=== PATIENT | male | born 1955 | race Caucasian/White ===

== ENCOUNTER → 2020-01-02 | Outpatient (CLI) | payer MEDICARE, BC ==
--- NOTE | 2020-01-02 09:53 | KCIC ---
MR of the left knee HISTORY: Left knee pain, chronic or years. 3 prior surgeries, most recent over 5 years ago. TECHNIQUE: Routine multiplanar sequences are obtained. COMPARISON: None are available. FINDINGS: Medial meniscus is small and blunted and distorted. There is also abnormal T2 signal within the meniscus which violates the surface. Although to some degree these findings could be postoperative, tearing is still suspected. Severe distortion and abnormal signal at the lateral meniscus, particularly the posterior horn, compatible with a tear, even if there was prior lateral meniscal surgery. Anterior and posterior cruciate ligaments are intact. Mild intercondylar notch osteophytes are present. Medial ligament is intact. Iliotibial band unremarkable. Fibular collateral ligament appears intact. Popliteus tendon intact. Extensor mechanism is intact. Moderate joint effusion. Small Ta's cyst. Moderate to severe chondromalacia involving the medial compartment. Lateral compartment chondromalacia, severe full-thickness at the posterior aspect of the joint. Patellofemoral cartilage is intact. No evidence of acute fracture. No aggressive bone destruction. Mild anterior subcutaneous edema. Scarring within the infrapatellar fat compatible with prior surgical intervention. IMPRESSION: 1. Findings compatible with medial and lateral meniscal tears. 2. DJD, greatest at the posterior aspect of the lateral joint compartment. Electronically signed by: Jemal Ríos MD (01/02/2020 9:50 AM) [id number]
== END ==
LOC: KCIC MRI 08:23
PROVIDERS: ATTEND Orthopaedic Surgery
DX: S83.282A Other tear of lateral meniscus, current injury, left knee, initial encounter (principal); S83.242A Other tear of medial meniscus, current injury, left knee, initial encounter; M17.12 Unilateral primary osteoarthritis, left knee; M25.462 Effusion, left knee; M94.262 Chondromalacia, left knee; M71.22 Synovial cyst of popliteal space [Baker], left knee; X58.XXXA Exposure to other specified factors, initial encounter; Y93.89 Activity, other specified; Y92.89 Other specified places as the place of occurrence of the external cause; Y99.8 Other external cause status
CPT/HCPCS: 73721

== ENCOUNTER → 2020-02-05 | Outpatient (CLI) | payer MEDICARE, BC ==
[~2020-02-05] MED LIST: ASPI325T11 PO; HYDR-2761 PO; LANS30CA PO; MESA250C PO; PROM25TA10 PO; SIMV40TA18 PO
== END | disposition home or self-care (01) ==
LOC: LAB 12:59
PROVIDERS: ATTEND Orthopaedic Surgery
DX: Z01.818 Encounter for other preprocedural examination (principal); Z11.59 Encounter for screening for other viral diseases
CPT/HCPCS: U0003-CS

== ENCOUNTER 2020-02-07 07:14 | Day surgery (SDC) | payer MEDICARE, BC ==
[~2020-02-07] VITALS: Ht 170.2 cm; Wt 87.5 kg
[~2020-02-07 07:14] MED LIST changes: -ASPI325T11 PO; -HYDR-2761 PO; +HYDROmorphone 2 MG/ML VIAL IV PRN; +IV RINGERS,LACTATED 1000ML 1,000 ML IV SCH; +MORPHINE SULFATE 2 MG/ML VIAL. IV PRN; +ONDANSETRON PF 4 MG/2 ML VIAL. IV PRN; +PROCHLORPERAZINE 10 MG/2 ML VIAL. IV PRN; -PROM25TA10 PO; +fentaNYL PF VIAL 100 MCG/2 ML VIAL IV PRN
[2020-02-07] MEDS ORDERED: PROPOFOL 10 MG/ML (20ML) VIAL. IV ONE (08:19)
[2020-02-07] MEDS ORDERED: ONDANSETRON PF 4 MG/2 ML VIAL. ONE (08:19)
[2020-02-07] MEDS ORDERED: fentaNYL PF VIAL 100 MCG/2 ML VIAL ONE (08:19)
[2020-02-07] MEDS ORDERED: LIDOCAINE 2% PF 5 ML VIAL. ONE (08:19)
[2020-02-07] MEDS ORDERED: DEXAMETHASONE SOD PHOS 4 MG/ML VIAL ONE (08:19)
[2020-02-07] MEDS ORDERED: ceFAZolin 2GM PREMIX 2 GM/50 ML BAG IV ONE (09:00)
[2020-02-07] MEDS ORDERED: EPINEPHrine VIAL 30 MG/30 ML VIAL ONE (09:34)
[2020-02-07] MEDS ORDERED: BUPIVACAINE MPF 0.25% 30 ML VIAL. ONE ×4 (09:35→10:13)
[2020-02-07] MEDS ORDERED: ePHEDrine PF IN SALINE 50 MG/10 ML SYRINGE. IV ONE (10:48)
[2020-02-07] MEDS ORDERED: SEVOFLURANE 61 TO 120 MINUTES. IH ONE (10:54)
[2020-02-07] MEDS ORDERED: BUPIVACAINE-EPI 0.25%-1:200000 MPF 30 ML VIAL. ONE (10:58)
[2020-02-07] MEDS ORDERED: GLYCOPYRROLATE 1 MG/5 ML VIAL. ONE (11:13)
--- NOTE | 2020-02-07 11:44 | PDOC4 ---
Operative Note Operative Note Date of Procedure: February 07, 2020 Preoperative Diagnosis: left knee medial and lateral meniscus tears Postoperative Diagnosis: * complex tear of medial meniscus, current injury, left knee, initial encounter S83.232A * complex tear of lateral meniscus, current injury, left knee, initial encounter S83.272A Procedures Performed: * left knee arthroscopy, surgical, with meniscectomy, medial AND lateral, including meniscal shaving, including debridement/shaving of articular cartilage (chondroplasty) CPT 57887 Surgeon: Janis Kolb MD Neurological Surgery Teacher: SA Chuck Zimmerman Anesthesia: General Estimated Blood Loss: 10 mL Specimens: none Drains: none Complications: none Tourniquet time: 27 minutes Indications for Procedure: The patient is a 64-year-old with left knee pain, unrelieved with nonoperative treatment. Exam and MRI are consistent with a meniscus tear. We talked about the risks and benefits of proceeding with an arthroscopic procedure. We talked about potential risks of ongoing pain, progressive arthritis, bleeding, infection, blood clots, or other potential surgical or anesthetic complications. All of the patient's questions about surgery were answered and they desired to proceed. Written consent was obtained. Description of Operation: The patient was identified in the preoperative holding area. The correct left knee was marked by me. The patient was taken to the operating room, where a g eneral anesthetic was used. Preoperative antibiotics were given intravenously. A time-out procedure was performed. A tourniquet was placed on the upper thigh. Local anesthetic 20 mL of 0.25% bupivacaine was injected using sterile technique into the knee joint. The limb was prepared circumferentially with ChloraPrep solution and sterile waterproof arthroscopy drapes were applied. The limb was exsanguinated with an Esmarch bandage and the tourniquet was inflated to 300 mm Hg. Lateral and medial arthroscopy portals were established. The medial meniscus showed a complex unrepairable tear with unstable flaps. A meniscectomy was perf ormed with basket forceps and the motorized shaver back to a smooth stable base, and the resection tapered into the middle one-third of the meniscus.The medial tibiofemoral joint showed chondromalacia Outerbridge grade III, and a shaving chondroplasty was performed removing unstable fragments of cartilage with the shaver.The intercondylar notch was free of loose bodies, and the ACL was intact. The lateral tibiofemoral joint showed a complex unrepairable meniscus tear, and a meniscectomy was performed with basket forceps and the motorized shaver back to a smooth stable base.The lateral articular surfaces showed chondromalacia Outerbridge grade III and IV, and a shaving chondroplasty was performed removing unstable fragments of cartilage with the motorized shaver. The patellofemoral joint showed chondromalacia Outerbridge grade III, and a shaving chondroplasty was performed removing unstable fragments of cartilage with the shaver. The suprapatellar pouch, medial and lateral gutters were free of loose bodies. Copious irrigation was used to drain all meniscal and chondral fragments, and the knee was drained of fluid. The portals were closed with Steri-Strips. Additional local anesthetic, 30 mL of 0.25% bupivacaine with epinephrine was injected. A bulky sterile dressing was applied and the tourniquet was released. Needle and sponge counts were correct and there were no apparent complications. JANIS KOLB MD Feb 07, 2020 11:44
[2020-02-07 12:15] VITALS: BP 135/79
[2020-02-07] MEDS ORDERED: oxyCODONE/APAP 7.5/325 1 TAB TABLET PO ONE (12:15)
[2020-02-07] MEDS ORDERED: HYDR-2761 PO (12:33)
[2020-02-07] MEDS ORDERED: PROM25TA10 PO (12:34)
[2020-02-07] MEDS ORDERED: ASPI325T11 PO (12:35)
== END 2020-02-07 13:15 | disposition home or self-care (01) ==
LOC: SURG 07:14
PROVIDERS: ATTEND Orthopaedic Surgery
DX: S83.232A Complex tear of medial meniscus, current injury, left knee, initial encounter (principal); S83.272A Complex tear of lateral meniscus, current injury, left knee, initial encounter; M94.262 Chondromalacia, left knee; M19.90 Unspecified osteoarthritis, unspecified site; X58.XXXA Exposure to other specified factors, initial encounter; Y93.89 Activity, other specified; Y92.89 Other specified places as the place of occurrence of the external cause; Y99.8 Other external cause status; Z88.8 Allergy status to other drugs, medicaments and biological substances; Z79.899 Other long term (current) drug therapy
CPT/HCPCS: 29880; A7015; J0171; J0690; J1100; J2405; J2704; J3010; J3490

== ENCOUNTER → 2020-12-10 | Outpatient (CLI) | payer MEDICARE, BC ==
[~2020-12-10] MED LIST changes: +ASPI325T11 PO; +HYDR-2761 PO; -HYDROmorphone 2 MG/ML VIAL IV PRN; -IV RINGERS,LACTATED 1000ML 1,000 ML IV SCH; -MORPHINE SULFATE 2 MG/ML VIAL. IV PRN; -ONDANSETRON PF 4 MG/2 ML VIAL. IV PRN; -PROCHLORPERAZINE 10 MG/2 ML VIAL. IV PRN; +PROM25TA10 PO; -fentaNYL PF VIAL 100 MCG/2 ML VIAL IV PRN
== END ==
LOC: LAB 10:16
PROVIDERS: ATTEND Orthopaedic Surgery
DX: Z01.812 Encounter for preprocedural laboratory examination (principal); G56.03 Carpal tunnel syndrome, bilateral upper limbs; Z20.822 Contact with and (suspected) exposure to COVID-19
CPT/HCPCS: U0003; U0005

== ENCOUNTER 2020-12-16 11:53 | Day surgery (SDC) | payer MEDICARE, BC ==
[~2020-12-16] VITALS: Ht 170.2 cm; Wt 87.0 kg
[~2020-12-16 11:53] MED LIST changes: +BUPIVACAINE-EPI 0.25% 30 ML VIAL KIT. ONE; +HYDROmorphone 2 MG/ML VIAL IVP PRN; +IV RINGERS,LACTATED 1000ML 1,000 ML IV SCH; +MORPHINE SULFATE 2 MG/ML VIAL. IVP PRN; +PROCHLORPERAZINE 10 MG/2 ML VIAL. IVP PRN; +fentaNYL PF VIAL 100 MCG/2 ML VIAL IVP PRN
[2020-12-16 12:20] VITALS: BP 163/77
[2020-12-16] MEDS ORDERED: PROPOFOL 10 MG/ML (20ML) VIAL. IV ONE ×2 (12:44→13:50)
[2020-12-16] MEDS ORDERED: LIDOCAINE 2% PF 5 ML VIAL. ONE (12:44)
[2020-12-16] MEDS ORDERED: KETOROLAC 30 MG/ML VIAL. ONE (12:45)
[2020-12-16] MEDS ORDERED: SEVOFLURANE 31 TO 60 MINUTES. IH ONE (12:45)
--- NOTE | 2020-12-16 13:02 | PDOC1 ---
History and Physical Date of Admission Date of Admission DATE: 12/16/20 TIME: 12:56 Identification/Chief Complaint Chief Complaint right carpal tunnel syndrome Source Source: Chart review, Patient History of Present Illness History of Present Illness 65-year-old man with hand pain and numbness, mostly in the right hand, and carpal tunnel syndrome by EMG. He tried nonoperative treatment with NSAIDs. He is here today for elective carpal tunnel release. Past Medical History Past Medical History Hearing loss, Tinnitus, Hyperlipidemia, GERD (gastroesophageal reflux disease), Back pain, Erectile dysfunction, Myalgia, Crohn's disease. Past Surgical History Past Surgical History left knee surgery (Multiple scopes) , partial bowel resection (Crohn's Dz) , right knee surgery (Multiple scopes) Family History Family History: Cancer Social History Smoke: No ALCOHOL: occassional Current Medications Current Medications Current Medications Fentanyl Citrate (Fentanyl 2ml Vial) 25 mcg PRN Q5MIN PRN IVP MILD PAIN 1-3; Start 12/13/20 at 06:00; Stop 12/13/20 at 20:00; Status DC Fentanyl Citrate (Fentanyl 2ml Vial) 50 mcg PRN Q5MIN PRN IVP MODERATE PAIN 4- 6; Start 12/13/20 at 06:00; Stop 12/13/20 at 20:00; Status DC Morphine Sulfate (Morphine Sulfate) 1 mg PRN Q10MIN PRN IVP SEVERE PAIN 7-10; Start 12/13/20 at 06:00; Stop 12/13/20 at 20:00; Status DC Ringer's Solution 1,000 ml @ 30 mls/hr Q24H IV ; Start 12/13/20 at 06:00; Stop 12/13/20 at 17:59; Status DC Hydromorphone HCl (Dilaudid) 0.5 mg PRN Q10MIN PRN IVP SEVERE PAIN 7-10, 2nd CHOICE; Start 12/13/20 at 06:00; Stop 12/13/20 at 20:00; Status DC Prochlorperazine Edisylate (Compazine) 5 mg PACU PRN PRN IVP NAUSEA, MRX1; Start 12/13/20 at 06:00; Stop 12/13/20 at 20:00; Status DC Fentanyl Citrate (Fentanyl 2ml Vial) 25 mcg PRN Q5MIN PRN IVP MILD PAIN 1-3; Start 12/16/20 at 06:00; Stop 12/17/20 at 05:59 Fentanyl Citrate (Fentanyl 2ml Vial) 50 mcg PRN Q5MIN PRN IVP MODERATE PAIN 4- 6; Start 12/16/20 at 06:00; Stop 12/17/20 at 05:59 Morphine Sulfate (Morphine Sulfate) 1 mg PRN Q10MIN PRN IVP SEVERE PAIN 7-10; Start 12/16/20 at 06:00; Stop 12/17/20 at 05:59 Ringer's Solution 1,000 ml @ 30 mls/hr Q24H IV Last administered on 12/16/20at 12:28; Start 12/16/20 at 06:00; Stop 12/16/20 at 17:59 Hydromorphone HCl (Dilaudid) 0.5 mg PRN Q10MIN PRN IVP SEVERE PAIN 7-10, 2nd CHOICE; Start 12/16/20 at 06:00; Stop 12/17/20 at 05:59 Prochlorperazine Edisylate (Compazine) 5 mg PACU PRN PRN IVP NAUSEA, MRX1; Start 12/16/20 at 06:00; Stop 12/17/20 at 05:59 Cefazolin Sodium/ Dextrose 50 ml @ 100 mls/hr 1X PREOP PRN IV PRIOR TO PROCEDURE; Start 12/16/20 at 06:00; Stop 12/16/20 at 18:00 Bupivacaine HCl/ Epinephrine Bitart (Sensorcain-Epi 0.25% Kit) 30 ml STK-MED ONCE .ROUTE ; Start 12/16/20 at 10:46; Stop 12/16/20 at 10:46; Status DC Propofol (Diprivan) 200 mg STK-MED ONCE IV ; Start 12/16/20 at 12:44; Stop 12/16/20 at 12:45; Status DC Lidocaine HCl (Lidocaine Pf 2% Vial) 5 ml STK-MED ONCE .ROUTE ; Start 12/16/20 at 12:44; Stop 12/16/20 at 12:45; Status DC Ketorolac Tromethamine (Toradol 30mg Vial) 30 mg STK-MED ONCE .ROUTE ; Start 12/16/20 at 12:45; Stop 12/16/20 at 12:45; Status DC Sevoflurane (Ultane) 30 ml STK-MED ONCE IH ; Start 12/16/20 at 12:45; Stop 12/16/20 at 12:45; Status DC Active Scripts Active Reported Simvastatin 40 Mg Tablet 40 Mg PO HS Lansoprazole 30 Mg Capsule.dr 30 Mg PO HS Pentasa (Mesalamine) 250 Mg Capsule.er 250 Mg PO HS Allergies Allergies: Coded Allergies: infliximab (Verified Allergy, Severe, FACIAL SWELLING, TROUBLE BREATHING, 12/16/20) azathioprine (Verified Adverse Reaction, Intermediate, MYALGIA; "MADE ME REAL SICK", 12/16/20) Physical Exam General: Alert, Cooperative HEENT: Atraumatic Lungs: Normal air movement Heart: RRR Abdomen: Soft Extremities: Normal pulses, Other (The overall alignment of the RIGHT hand is normal. There are no masses. Minimal tenderness except over the median nerve. Light touch sensation is decreased in the thumb index and long finger. Aluminum Container Tester strength is intact for motor strength but subjectively slightly weakened. There is no thenar atrophy. Pulses intact. Phalen's positive. Tinel's positive. Ti ryan's at the elbow is negative) Vitals Vitals Vital Signs Date Time Temp Pulse Resp B/P (MAP) Pulse Ox O2 Delivery O2 Flow Rate FiO2 12/16/20 12:27 97.5 54 20 163/77 97 Room Air 97.5 VTE Prophylaxis Ordered VTE Prophylaxis Devices: Yes VTE Pharmacological Prophylaxi: No Assessment/Plan Assessment/Plan 65-year-old man has hand pain and numbness and carpal tunnel syndrome. He also has arthritis which limits motion. We talked about options for treatment. I do recommend surgical release, as chronic carpal tunnel syndrome can result in permanent and irreversible hand atrophy. Given his failure of nonoperative measures with continued pain, my recommendation is surgery with postoperative physical therapy for his hand arthritis. Plan is elective right carpal tunnel syndrome today. We discussed potential risks of surgery, including risks of bleeding, infection, neurovascular injury, residual numbness, or other potential surgical or anesthetic complications. We also discussed postoperative treatment and expectations including likely persistence of his hand arthritic symptoms. All of his questions were answered and he desires to proceed with surgery. He is here today for elective right carpal tunnel release. Justifications for Admission Other Justification JANIS BRITO MD December 16, 2020 13:02
[2020-12-16] MEDS ORDERED: ONDANSETRON PF 4 MG/2 ML VIAL. ONE (13:19)
[2020-12-16] MEDS ORDERED: DEXAMETHASONE SOD PHOS 4 MG/ML VIAL ONE (13:19)
--- NOTE | 2020-12-16 14:03 | PDOC4 ---
Operative Note Operative Note Date: December 16, 2020 Preoperative diagnosis: Carpal tunnel syndrome, right upper limb G56.01 Postoperative diagnosis: Carpal tunnel syndrome, right upper limb G56.01 Procedures performed: right wrist, open carpal tunnel release (neuroplasty of the median nerve at the carpal tunnel, CPT 20813 Surgeon: Janis Kolb MD Anesthesia: General Estimated blood loss: 10 mL Specimens: none Drains: none Complications: none Tourniquet: 4 minutes at 250 mm Hg Indications for procedure: The patient is a 65-year-old with right hand pain and numbness. EMG confirms carpal tunnel syndrome. The patient and I discussed carpal tunnel release surgery along with the potential risks of infection, neurovascular injury, bleeding, persistent or recurrent carpal tunnel syndrome, wound healing problems, or other surgical or anesthetic complications. All of the patients questions about surgery were answered and they desired to proceed. Written consent was obtained. Procedure in detail: The patient was identified in the preoperative holding area. The correct right hand was marked by me. The patient was taken to the operating room and positioned supine on the operating table with the right arm extended on an arm board. A tourniquet was placed on the upper right arm. Preoperative antibiotics were given intravenously. A timeout procedure was performed. The limb was prepared in sterile fashion with ChloraPrep solution and sterile drapes were applied. An Esmarch bandage was used to exsanguinate the limb and the tourniquet was inflated to 250 mmHg. A curvilinear incision was made with a 15 blade scalpel, 2mm ulnar to the thenar crease, using landmarks including the thenar crease, Kaplans cardinal line, the ulnar border of the fingernail of the ring finger, the wrist flexion crease, and the palmaris longus tendon. Care was made not to extend this incision beyond Kaplans cardinal line, so as to avoid arterial injury. Loupe magnification (3.5x extended field) was used throughout to prevent neurovascular injury. Sharp dissection was used through the subcutaneous tissues, and the palmaris longus tendon was retracted toward the thumb. Bipolar electrocautery was used for hemostasis. The transverse carpal ligament was identified and was divided under direct vision proximally and distally. Scissor dissection was used proximal to the wrist flexion crease to complete the proximal release of the transverse carpal ligament with the skin elevated away from the dissection. Digital palpation was used proximally and distally, ensuring a complete release. A gentle scissor neuroplasty was now performed along the ulnar aspect of the median nerve, releasing dense adhesions and dense synovium. The right median nerve was thinned. Care was made not to injure the motor branch on the radial aspect. Copious saline irrigation was used. The tourniquet was released. Bipolar electrocautery was used for hemostasis. The skin edges were injected with 0.25% bupivacaine with epinephrine. The skin edges were reapproximated with #3-0 Prolene horizontal mattress sutures. Needle and sponge counts were correct. Xeroform and a sterile dressing were applied. The tourniquet was released. There were no apparent complications. The patient returned to the recovery room in stable condition. JANIS KOLB MD December 16, 2020 14:03
[2020-12-16] MEDS ORDERED: HYDROcodone/APAP 7.5/325MG 1 TAB TABLET ONE (14:26)
[2020-12-16] MEDS ORDERED: HYDROcodone/APAP 7.5/325MG 1 TAB TABLET PO ONE (14:30)
[2020-12-16] MEDS ORDERED: HYDR-2763 PO (14:44)
[2020-12-16 14:47] VITALS: BP 135/72
== END 2020-12-16 15:23 | disposition home or self-care (01) ==
LOC: SURG 11:53
PROVIDERS: ATTEND Orthopaedic Surgery
DX: G56.01 Carpal tunnel syndrome, right upper limb (principal); E78.00 Pure hypercholesterolemia, unspecified; K21.9 Gastro-esophageal reflux disease without esophagitis; M19.90 Unspecified osteoarthritis, unspecified site; Z79.899 Other long term (current) drug therapy; Z98.890 Other specified postprocedural states; Z88.8 Allergy status to other drugs, medicaments and biological substances; Z72.89 Other problems related to lifestyle
CPT/HCPCS: 64721; A4930; A6223; A6402; J0690; J1100; J1885; J2405; J2704; A4657; A6452